=== PATIENT | male | born 1980 | race Hispanic/Latino ===

== ENCOUNTER 2021-08-03 10:30 | Emergency (ER) | payer OTHER ==
[2021-08-03] MEDS ORDERED: Tranexamic Acid 1,000 MG/10 ML VIAL IVP SCH (12:15)
== END 2021-08-03 15:39 ==
LOC: ERS 10:30
DX: T78.3XXA Angioneurotic edema, initial encounter (principal); E11.9 Type 2 diabetes mellitus without complications; I10 Essential (primary) hypertension; E78.5 Hyperlipidemia, unspecified; E66.9 Obesity, unspecified; M06.9 Rheumatoid arthritis, unspecified; Z79.84 Long term (current) use of oral hypoglycemic drugs; Z79.899 Other long term (current) drug therapy
CPT/HCPCS: 96374